=== PATIENT | female | born 2000 | race Caucasian/White ===

== ENCOUNTER 2025-07-10 08:18 | Outpatient (AMB) | payer BC, SELFPAY ==
--- OUTSIDE RECORDS SUMMARY | 2024-12-28 04:00 | XMS_ITS ---
Author Organization [facility] [address] [address] Address [address] [address] Care Team Providers Care Meat Stuffer Name Role Phone DIMAS RODRIGUEZ Unavailable [phone] Encounters Encounter Location Date Provider Diagnosis [facility] [address] [address] 12/28/2024 DIMAS RODRIGUEZ Plan Of Treatment Next Appt Details Provider Name:DIMAS RODRIGUEZ, 09/02/2025 08:30:00 AM, [address], [place], [address], Progress Notes * YANNA ESTRELLA KDOB: [birth year] (24 yo F)Acc No.[id number]:12/28/2024 CPE Patient: YANNA ESTRELLA Provider: Darryl RODRIGUEZ PA-C :2000 A ge:24 Y S ex:Female Date:12/28/2024 Address:[address] [place] [address] [place], [id number] Care Plan Details* * Electronic signature of ANGELINE RODRIGUEZ PA-C on 07/10/2025 at 08:26 AM EST Sign off status: Pending * Provider: Darryl RODRIGUEZ PA-C Date: 0 12/28/2024 Generated for Igor arechiga/Karthik/Francis on: 1 09/10/2024 08:26 AM EST
--- OUTSIDE RECORDS SUMMARY | 2025-05-01 03:00 | XMS_ITS ---
Author Organization [facility] [address] Address [address] [place] [address] Care Team Providers Care Director Of Pulmonary Unit Name Role Phone DIMAS RODRIGUEZ Unavailable [phone] Encounters Encounter Location Date Provider Diagnosis [facility] [address] [place] [address] 05/01/2025 DIMAS RODRIGUEZ Plan Of Treatment Next Appt Details Provider Name:DIMAS RODRIGUEZ, 09/02/2025 08:30:00 AM, [address], [place], [address], Progress Notes * YANNA ESTRELLA KDOB: [birth year] (24 yo F)Acc No.[id number]:05/01/2025 Progress Notes Patient: YANNA ESTRELLA Provider: Darryl RODRIGUEZ PA-C :2000 A ge:24 Y S ex:Female Date:05/01/2025 Address:[address] [place] [id number] Care Plan Details* * Electronic signature of ANGELINE RODRIGUEZ PA-C on 07/10/2025 at 08:26 AM EST Sign off status: Pending * Provider: Darryl RODRIGUEZ PA-C Date: Generated for Igor arechiga/Karthik/eTransmanna on: 1 09/10/2024 08:26 AM EST
--- OUTSIDE RECORDS SUMMARY | 2025-07-10 08:27 | XMS_ITS | Clinical Summary ---
Author Organization [facility] Address [address] [place] [address] Phone Care Team Providers Care Social Media Strategist Name Role Phone Physician, No Pcp Primary Care Provider Unavaila ble Encounters Date Type Department Care Team Description 05/15/2025 8:09 AM EDT - 05/15/2025 11:59 PM EDT Hospital Encounter [facility] Ultrasound [address] [place] [address] Abdominal mass, unspecified abdominal location Discharge Disposition: Home or Self Care from Last 3 Months Social History Tobacco Use Types Packs/Day Years Used Date Smoking Tobacco: Never Assessed Comments Unknown Sex and Gender Information Value Date Recorded Sex Assigned at Not on file Legal Sex Female 11:39 AM EDT Gender Identity Not on file Sexual Orientation Not on file Last Filed Vital Signs Vital Sign Reading Time Taken Comments Blood Pressure 100/70 03/05/2024 8:11 AM EDT Pulse - - Temperature - - Respiratory Rate - - Oxygen Saturation - - Inhaled Oxygen Concentration - - Weight 76.7 kg (169 lb) 03/05/2024 8:11 AM EDT Height 177.8 cm (5' 10 ) 03/05/2024 8:11 AM EDT Body Mass Index 24.25 03/05/2024 8:11 AM EDT Plan of Treatment Health Maintenance Due Date Last Done Comments Meningococcal B Vaccine (2 of 2 - Bexsero SCDM 2-dose series) 12/15/2018 06/17/2018 Cervical Cancer Screening: Pap Smear 12/25/2019 HIV Screening 05/02/2024 Hepatitis C Screening 05/02/2024 Social Influencers of Health Screening 05/02/2024 Depression Screening 07/25/2024 COVID-19 Vaccine ( season) 2025 04/25/2024, 07/01/2023, 01/08/2023, Additional history exists DTaP,Tdap,and Td Vaccines (8 - Td or Tdap) 01/08/2033 01/08/2023, 01/20/2010, 12/20/2003, Additional history exists RSV Immunization Adult Patients (1 - 1-dose 75+ series) 2073 HIB Vaccines Completed 04/15/2000, 06/24, 05/05/1999, Additional history exists Pneumococcal Vaccine: Pediatrics (0 to 5 Years) and At-Risk Patients (6 to 49 Years) Aged Out 09/02/2000, 07/22/2000 No longer eligibl e based on patient's age to complete this topic IPV Vaccines Completed 12/20/2003, 06/25, 05/05/1999, Additional history exists MMR Vaccines Completed 12/20/2003, 01/20/2000 Varicella Vaccines Completed 01/20/2010, 01/20/2000 HPV Vaccines Completed 03/11/2014, 07/26, 06/20/2013 Hepatitis A Vaccines Completed 03/11/2014, 03/01/20 13 Meningococcal ACWY Vaccine Completed 03/19/2015, Hepatitis B Vaccines Completed 12/20/2018, 07/06/1999, 01/22/1999, Additional history exists Influenza Vaccine Completed 05/07/2025, , 04/15/2023, Additional history exists RSV Immunization Patients Under 20 months Aged Out No longer eligible based on patient's age to complete this topic Procedures Procedure Name Priority Date/Time Associated Diagnosis Comments US ABDOMEN LIMITED Routine 05/15/2025 8: 25 AM EDT Abdominal mass, unspecified abdominal location from Last 3 Months Results * US Abdomen Limited (05/15/2025 8:25 AM EDT) Anatomical Region Laterality Modality Body Ultrasound 05/22/2025 4:52 PM EDT Impressions 05/22/2025 4:53 PM EDT Impression: No sonographic abnormality identified to account for the palpable mass. Further management should be based on clinical findings. Telerad MARY GRACE ([id number]) -------- FINAL REPORT -------- Dictated By: Jeni Sharp Dictated Date: 05/22/2025 16:52 ET Assigned Physician: Jeni Sharp Reviewed and Electronically Signed By: Jeni Sharp Signed Date: 05/22/2025 16:53 ET Workstation ID: [id number] Transcribed By: Self Edit Transcribed Date: 05/22/2025 16:52 ET Narrative 05/22/2025 4:53 PM EDT History: 24-year-old female with palpable mass right lower quadrant/right inguinal region for a few months. Findings: High resolution real-time imaging of the right lower quadrant/right inguinal region was performed, targeted to the area of clinical concern as directed by the patient. The skin and subcutaneous soft tissues are normal. No abnormal mass or fluid collection is seen. No lymphadenopathy is identified. Procedure Note Jeni Sharp MD - 05/22/2025 History: 24-year-old female with palpable mass right lower quadrant/rightinguinal region for a few months. Findings: High resolution real-time imaging of the right lower quadrant/rightinguinal region was performed, targeted to the area of clinical concern asdirected by the patient. The skin and subcutaneous soft tissues are normal. No abnormal mass orfluid collection is seen. No lymphadenopathy is identified. IMPRESSION: Impression: No sonographic abnormality identified to account for the palpable mass.Further management should be based on clinical findings. Telerad MARY GRACE ([id number]) -------- FINAL REPORT -------- Dictated By: Jeni Sharp Dictated Date: 05/22/2025 16:52 ET Assigned Physician: Jeni Sharp Reviewed and Electronically Signed By: Jeni Sharp Signed Date: 05/22/2025 16:53 ET Workstation ID: [id number] Transcribed By: Self Edit Transcribed Date: 05/22/2025 16:52 ET us Florin BRODY IMG US PROCEDURES Final Re sult from Last 3 Months Insurance [facility] ([facility]) Care Teams Social Media Strategist Relationship Specialty Start Date End Date Physician, No Pcp PCP - General 05/09/25
--- OUTSIDE RECORDS SUMMARY | 2025-07-10 08:27 | XMS_ITS | Patient Health Record ---
[facility] Address [address] [place] [address] Care Team Providers Care Manager Of Housekeeping Name Role Phone DIMAS RODRIGUEZ Unavailable [phone] Allergies No Known Allergies Results Component Value Reference Range Flag Notes Hemoglobin [id number] Reviewed date:01/22/2025 08:09:57 AM Interpretation: Performing Lab:[facility], [address] [facility], Phone - [phone], Director - Sena Notes/Report: Clinical Information:[id number] Hemoglobin A1c 4.9 4.8-5.6 % . Prediabetes: 5.7 - 6.4 Diabetes: >6.4 Glycemic control for adults with diabetes: <7.0 Urinalysis, Complete-[id number] Reviewed date:01/22/2025 08:09:57 AM Interpretation: Performing Lab:[facility], [address] [facility], [place], Phone - [phone], Director - Sena Notes/Report: Clinical Information:[id number] Clinical Information:[id number] Specific [place] 1.017 1.005-1.030 pH 6.0 5.0-7.5 Urine-Color Yellow Yellow Appearance Clear Clear WBC Esterase 3+ Negative A Protein Negative Negative/Trace Glucose Negative Negative Ketones Negative Negative Occult Blood Negative Negative Bilirubin Negative Negative Urobilinogen,Semi-Qn 0.2 0.2-1.0 mg/dL Nitrite, Urine Negative Negative Microscopic Examination See below: Microscopic was indicated and was performed. WBC 0-5 0 - 5 /hpf RBC None seen 0 - 2 /hpf Epithelial Cells (non renal) >10 0 - 10 /hpf A Casts None seen None seen /lpf Bacteria Few None seen/Few [id number] Reviewed date:01/22/2025 08:09:57 AM Interpretation: Performing Lab:[facility] [place], [address] [place] [address], Phone - [phone], Director - Sena Notes/Report: Clinical Information:[id number] TSH 2.020 0.450-4.500 uIU/mL CBC With Differential/Platel et-[id number] Reviewed date:01/22/2025 08:09:50 AM Interpretation: Performing Lab:[facility] [place], [address] [place] [address], Phone - [phone], Director - Sena Notes/Report: Clinical Information:[id number] WBC 7.7 3.4-10.8 x10E3/uL RBC 4.04 3.77-5.28 x10E6/uL Hemoglobin 12.2 11.1-15.9 g/dL Hematocrit 39.2 34.0-46.6 % MCV 97 79-97 fL MCH 30.2 26.6-33.0 pg MCHC 31.1 31.5-35.7 g/dL L RDW 13.8 11.7-15.4 % Platelets 337 150-450 x10E3/uL Neutrophils 53 Not Estab. % Lymphs 37 Not Estab. % Monocytes 7 Not Estab. % Eos 2 Not Estab. % Basos 1 Not Estab. % Neutrophils (Absolute) 4.1 1.4-7.0 x10E3/uL Lymphs (Absolute) 2.8 0.7-3.1 x10E3/uL Monocytes(Absolute) 0.5 0.1-0.9 x10E3/uL Eos (Absolute) 0.2 0.0-0.4 x10E3/uL Baso (Absolute) 0.1 0.0-0.2 x10E3/uL Immature Granulocytes 0 Not Estab. % Immature Grans (Abs) 0.0 0.0-0.1 x10E3/uL Vitamin D, [id number] Reviewed date:01/22/2025 08:09:57 AM Interpretation: Performing Lab:[facility] [place], [address] [place] [address], Phone - [phone], Director - Sena Notes/Report: Clinical Information:[id number] Vitamin D, 25-Hydroxy 37.5 30.0-100.0 ng/mL Vitamin D deficiency has been defined by the [employer] and an Endocrine Society practice guideline as a level of serum 25-OH vitamin D less than 20 ng/mL (1,2). The Endocrine Society went on to further define vitamin D insufficiency as a level between 21 and 29 ng/mL (2). 1. IOM ([employer]). 2010. Dietary reference intakes for calcium and D. [place]: The National Academies Press. 2. Khalida MF, Pamela ZARAGOZA, Catrachito JACOB, et al. Evaluation, treatment, and prevention of vitamin D deficiency: an Endocrine Society clinical practice guideline. JCEM. 2010; 96(7):1911-30. Lipid Panel-[id number] Reviewed date:01/22/2025 08:09:57 AM Interpretation: Performing Lab:[facility], [address] [facility], Phone - [phone], Director - Sena Notes/Report: Clinical Information:[id number] Cholesterol, Total 173 100-199 mg/dL Triglycerides 110 0-149 mg/dL HDL Cholesterol 68 >39 mg/dL VLDL Cholesterol Jonas 19 5-40 mg/dL LDL Chol Calc ([facility]) 86 0-99 mg/dL Comp. Metabolic Panel ([id number] Reviewed date:01/22/2025 08:09:57 AM Interpretation: Performing Lab:[facility] [place], [address] [facility], Phone - [phone], Director - Sena Notes/Report: Clinical Information:[id number] Glucose 91 70-99 mg/dL BUN 12 6-20 mg/dL Creatinine 0.78 0.57-1.00 mg/dL eGFR 107 >59 mL/min/1.73 BUN/Creatinine Ratio 15 9-23 Sodium 138 134-144 mmol/L Potassium 4.1 3.5-5.2 mmol/L Chloride 103 96-106 mmol/L Carbon Dioxide, Total 21 20-29 mmol/L Calcium 9.2 8.7-10.2 mg/dL Protein, Total 7.2 6.0-8.5 g/dL Albumin 4.3 4.0-5.0 g/dL Globulin, Total 2.9 1.5-4.5 g/dL Bilirubin, Total 0.3 0.0-1.2 mg/dL Alkaline Phosphatase 36 44-121 IU/L L AST (SGOT) 22 0-40 IU/L ALT (SGPT) 12 0-32 IU/L MR BRAIN WO CONTRAST Reviewed date:02/21/2025 10:15:08 AM Interpretation: Performing Lab: Notes/Report: Note See Note [facility], a member of [facility] Patient Name: EUGENIA ESTRLELA Date of : 2000 Reason for Exam: TREMOR, HEADACHE Exam Date: 02/20/2025 [id number] EST Report Status: Final Ordering Provider: DIMAS RODRIGUEZ PCP: PROCEDURE: Brain MRI INDICATION: Headache , tremor TECHNIQUE: Multiplan ar, multisequence MRI of the brain Without contrast. COMPARISON: No prior s available. FINDINGS: No acute infarct, ma ss effect, or intracranial hemorrhage. Brain parenchyma is normal in signal. No abnormal intracranial susceptibility artifact. Sella and foramen magnum are normal. Ventricles, sulci, a nd cisterns are normal in size and configuration. No hydrocephalus. Major intracranial arterial flow voids are normal. Sinuses and mastoid air cells are clear. Orbits and extra cranial soft tissues are normal. Calvarium is normal IMPRESSION: Normal brain MRI without contrast -------- FINAL REPOR T -------- Dictated By: DIANE RAHMAN Dictated Date: 02/20/2025 17:54 ET Assigned Physician: DIANE RAHMAN Reviewed and Electronically Signed By: DIANE RAHMAN Signed Date: 025 17:56 ET Workstation ID: [id number] Transcribed By: Self Edit Transcribed Date: 02/20/2025 17:54 ET US ABDOMEN LIMITED Reviewed date:05/23/2025 08:14:05 AM Interpretation: Performing Lab: Notes/Report: Note See Note [facility], a member of [facility] Patient Name: EUGENIA ESTRELLA Date of : 2000 Reason for Exam: abdominal mass unspecified abdominal location Exam Date: 05/15/2025 [id number] EST Report Status: Final Ordering Provider: DIMAS RODRIGUEZ PCP: History: 24-year-old female with palpable mass right [...] should be based on clinical findings. [place] ([id number]) -------- FINAL REPOR T -------- Dictated By: Jeni Dennis i Dictated Date: 05/22/2025 16:52 ET Assigned Physician: Jeni Sharp Reviewed and Electronically Signed By: Jeni Sharp Signed Date: 16:53 ET Workstation ID: [id number] Transcribed By: Self Edit Transcribed Date: 05/22/2025 16:52 ET Reason For Referral Reason Evaluate & Treat S leep Study @ home hx following sleep medicine w/phone Diagnosis 1 Daytime sleepiness ( R40.0) [facility] Referring Provider First Name DIMAS Referring Provider Last Name JENNIFER Referring Provider Speciality Internal edicine Referred Provider Specialty Pulmonology General Notes Shelley Pena 0 01/30/2025 03:59:27 PM > Referral to [facility] and faxed, p. [phone], f. [phone] Clinical Notes Elijah Stone 10:33:29 AM > Refaxed twice to [phone] Referral Priority Routine Reason Evaluate & Treat S leep Study @ Home hx following sleep medicine w/phone Diagnosis 1 Daytime sleepiness ( R40.0) [facility] Referring Provider First Name DIMAS Referring Provider Last Name JENNIFER Referring Provider Speciality Internal edicine Referred Provider Specialty Sleep Medici ne General Notes Shelley Pena 0 03/06/2025 08:07:29 AM > Referral to Sleep Medicine [facility] and faxed, p. [phone], f. [phone] Clinical Notes Elijah Stone 12/2024 01:41:53 PM > spoke with michael Willett done with sleep study in Mar. Referral Priority Routine Medications Medication SIG (Take, Route, Frequency, Duration) Notes Start Date End Date Status SUMAtriptan Succinate 25 MG Tablet 25 mg, can repeat dose x 1, after 2 hours Orally twice a day; Duration: 15 days 01/29/2025 Active Liset Active Propranolol HCl ER 80 MG Capsule Extended Release 24 Hour Oral; Duration: 90 Days Acti ve Immunizations Vaccine Route Administration Date Status Comme nts influenza IM Intramuscular 06/20/2019 Administered Social History Tobacco Use: Social History Observation Description Date Details (start date - stop date) Never Smoker NA - NA Social History Tobacco Use: Social Info Question Answer Notes Tobacco Use/Smoking Are you a nonsmoker Additional Details Category Social Info Options Details Drugs/Alcohol: Do you smoke marijuana? Ad mits Do you drink alcohol? 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 [facility] ETOH Use: < 1 drink weekly Tob Use: declines Drug Use: declines Caffeine Use: Coffee daily, rare energy drink Smoke detectors in home: Yes Seatbelt use: Yes [facility] school starting in March See HPI Nurse at [facility] ETOH Use: < 1 drink weekly Tob Use: declines Drug Use: declines Caffeine Use: Coffee daily, rare energy drink Smoke detectors in home: Yes Seatbelt use: Yes Problems Problem Type SNOMED Code ICD Code Onset Dates Problem Status W/U Status Risk Notes Problem Vitamin D deficiency (58891666) Vitamin D deficiency, unspecified (E55.9) Active confirmed Problem Diabetes mellitus screening (966855252) Encounter for screening for diabetes mellitus (Z13.1) Active confirmed Problem Endocrine/[place] lic screening (870132905) Encounter for screening for other suspected endocrine disorder (Z13.29) Active confirmed Problem Annual health maintenance examination (92038421) Annual physical exam (Z00.00) Active confirmed Problem Excessive daytime sleepiness - normal night sleep (959380375) Daytime sleepiness (R40.0) Active confirmed Problem Tremor of both hands (R25.1) Active confirmed Problem Lipid screening (177674915) Lipid screening (Z13.220) Active confirmed Problem Migraine variant with headache (disorder) (516400872) Migraine headache (G43.909) Active confirmed Problem Acne scarring (L73.0) Active confirmed Problem Excessive daytime sleepiness (4106976455) Excessive daytime sleepiness (G47.19) Active confirmed Problem Refractory migraine with aura (136121475) Intractable migraine with aura with status migrainosus (G43.111) Active confirmed Vital Signs Heart Rate 68 /min 05/02/2025 Oximetry 99 % 05/02/2025 Blood pressure diastolic 76 mm Hg 05/02/2025 Height 69 in 05/02/2025 Blood pressure systolic 122 mm Hg 05/02/2025 Weight 181.3 lbs 05/02/2025 BMI 26.77 kg/m2 05/02/2025 Encounters Encounter Location Date Provider Diagnosis [facility] [address] [place] [address] 01/29/2025 DIMAS RODRIGUEZ Tremor R25.1 ; Welln ess examination Z00.00 ; Daytime sleepiness R40.0 ; Pre-syncope R55 ; Intractable migraine with aura with status migrainosus G43.111 and Encounter for examination of blood pressure without abnormal findings Z01.[address] [facility] [address] [place] [address] 05/02/2025 DIMAS RODRIGUEZ Tremor R25.1 ; Dayti me sleepiness R40.0 ; Pre-syncope R55 ; Intractable migraine with aura with status migrainosus G43.111 and Encounter for examination of blood pressure without abnormal findings Z01.30 [facility] [address] [place] [address] 05/02/2025 DIMAS RODRIGUEZ Abdominal mass, unspecified abdominal location R19.00 Assessments Encounter Date Diagnosis (ICD Code) Assessment Notes Treatment Notes Treatment Clinical Notes Section Notes 01/29/2025 Tremor (ICD-10 - R25.1) Eugenia is a 24-year-old female who presents the office for a complete physical examination # PHQ-9 completed January 29, 2025 with a total score of 3, no concern regarding mental health at this time. # Up-to-date on flu, and tetanus, declines COVID vaccination # Up-to-date on Pap smear November 2024, Dr. Lauren Stern # Labs reviewed, overall without concern # History of tremor, following with [place] [facility], on propranolol 80 mg. Occasional lightheadedness which could be associated with side effect of bradycardia, heart rate 54 today. States that it is worse when she does not eat, discussed the importance of nutrition. # Daytime sleepiness: Referred to sleep medicine, patient did not get at home sleep study, will recontact sleep medicine as they already ordered at home sleep study. # Taking control, Discussed risk factors associated with taking control with migraines. # Migraines: About 5 times per month. Mother has a history of them as well, treated with sumatriptan which patient tried. She is interested in a prescription for this which was sent. Discussed proper use, and side effects. Patient states that the migraine always is in her right congregational, and behind her right eye. With her history of migraines, and tremors, she is interested in MRI for which we will order without contrast. Also encouraged to follow with neurology. She is not interested in any abortive treatment at this time, just preventative for which we will start with sumatriptan. 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 No further workup indicated at this time but can repeat echoes in the future for further monitoring. # Bilateral hand tremors, will order EMG, Negative. Patient still experiencing tremors, not better with alcohol. Follow-up with [place] [facility], taking propranolol 80 mg # Patient concerns in regards to a lump in her right groin. Based on physical exam most likely a benign lymph node. No further workup needed at this time, but did discuss criteria for further evaluation with an ultrasound. Less likely hernia at this time. Follow-up in 3 months, follow-up with sleep medicine, neurology, and obtain MRI of the brain in the meantime. Patient seen and examined. Comprehensive discussion was done on the following. 1. Nutrition: It is important to follow a healthy diet based on lots of vegetables and legumes and good fat. Avoid processed food and processed carbohydrates. Prepare your own meals. Read labels and avoid high fructose corn syrup, processed chemicals added to increase shelf life and preprepared meals. Avoid fast foods. Eat slowly and plan meals for a week. Try to count calories and be mindful off daily calorie intake. Get into the habit of keeping an eye on your weight by using an appropriate scale. Learn to log exercise and discussed fitness Apps like Shoptimise which can help keep log off calories taken versus calories burned. Local food should be preferred. Discussed Dirty Dozen Versus Clean Fifteen. Discussed healthy supplements like fish oil, Tumeric, Curcumin, Melatonin, Resveratrol, Probiotics, Vitamin-D, Alpha-Lipoic acid, Vitamin-D and coconut oil. 2. It is important to exercise regularly. Is a good habit to walk at least 30 minutes a day. Gentle weightlifting with standard precautions to protect the back. Finding activity like cycling or hiking and get into the habit of engaging in it. Stretching before and after the exercises important. It is also important to contact me if there are any problems like shortness of breath, chest pain, back pain and joint or muscle pain associated with the exercise. 3. Discussed age appropriate screening guidelines. Colonoscopy needs to start at age 50 with stool for occult blood as appropriate. There is a new test that can test for genetic abnormalities in the stool sample, Cologuard. This would not replace a colonoscopy but could be used as a screening tool for patients who do not want a colonoscopy. We discussed the importance of early detection of colon cancer. 4. Discussed current guidelines with respect to breast examination, mammogram and pap smear for early detection of breast and cervical cancer. Patient advised to follow up with these appointments. 5. Discussed safe driving and no use of smart phone while driving 6. Age-appropriate immunizations were discussed. A tetanus booster is needed every 10 years. Flu vaccine is recommended every year just before the start of the flu season. Shingles vaccine is recommended after age 50 but not all insurances cover it. Pneumonia vaccine is given after age 65 unless there are certain comorbidities for which it is started earlier. 7. Diagnostic labs were discussed. These could include/not limited to CBC CMP and lipids with fasting blood glucose and insulin levels. Vitamin D and hemoglobin A1c testing might be appropriate. All quetsions answered to patients satisfaction. Patient verbalized understanding of diagnosis and treatments explained. To call sooner prior to next visit it any questions/concerns arise. Case discussed with collaborating physician Tala Mack who reviewed the assessment and plan. Chart, medications, labs, vital signs reviewed. Dictation was accomplished with the use of [employer] voice recognition software, prone to medical misidentifications and grammatical errors. This is unintentional and the practitioner does try to identify and correct these, but some could still be present. Please do not hesitate to contact practitioner for clarification. 01/29/2025 Wellness examination (ICD-10 - Z00.00) Eugenia is a 24-year-old female who presents the office for a complete physical examination # PHQ-9 completed January 29, 2025 with a total score of 3, no concern regarding mental health at this time. # Up-to-date on flu, and tetanus, declines COVID vaccination # Up-to-date on Pap smear November 2024, Dr. Lauren Stern # Labs reviewed, overall without concern # History of tremor, following with [place] [facility], on propranolol 80 mg. Occasional lightheadedness which could be associated with side effect of bradycardia, heart rate 54 today. States that it is worse when she does not eat, discussed the importance of nutrition. # Daytime sleepiness: Referred to sleep medicine, patient did not get at home sleep study, will recontact sleep medicine as they already ordered at home sleep study. # Taking control, Discussed risk factors associated with taking control with migraines. # Migraines: About 5 times per month. Mother has a history of them as well, treated with sumatriptan which patient tried. She is interested in a prescription for this which was sent. Discussed proper use, and side effects. Patient states that the migraine always is in her right congregational, and behind her right eye. With her history of migraines, and tremors, she is interested in MRI for which we will order without contrast. Also encouraged to follow with neurology. She is not interested in any abortive treatment at this time, just preventative for which we will start with sumatriptan. 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 No further workup indicated at this time but can repeat echoes in the future for further monitoring. # Bilateral hand tremors, will order EMG, Negative. Patient still experiencing tremors, not better with alcohol. Follow-up with [place] [facility], taking propranolol 80 mg # Patient concerns in regards to a lump in her right groin. Based on physical exam most likely a benign lymph node. No further workup needed at this time, but did discuss criteria for further evaluation with an ultrasound. Less likely hernia at this time. Follow-up in 3 months, follow-up with sleep medicine, neurology, and obtain MRI of the brain in the meantime. Patient seen and examined. Comprehensive discussion was done on the following. 1. Nutrition: It is important to follow a healthy diet based on lots of vegetables and legumes and good fat. Avoid processed food and processed carbohydrates. Prepare your own meals. Read labels and avoid high fructose corn syrup, processed chemicals added to increase shelf life and preprepared meals. Avoid fast foods. Eat slowly and plan meals for a week. Try to count calories and be mindful off daily calorie intake. Get into the habit of keeping an eye on your weight by using an appropriate scale. Learn to log exercise and discussed fitness Apps like [employer] which can help keep log off calories taken versus calories burned. Local food should be preferred. Discussed Dirty Dozen Versus Clean Fifteen. Discussed healthy supplements like fish oil, Tumeric, Curcumin, Melatonin, Resveratrol, Probiotics, Vitamin-D, Alpha-Lipoic acid, Vitamin-D and coconut oil. 2. It is important to exercise regularly. Is a good habit to walk at least 30 minutes a day. Gentle weightlifting with standard precautions to protect the back. Finding activity like cycling or hiking and get into the habit of engaging in it. Stretching before and after the exercises important. It is also important to contact me if there are any problems like shortness of breath, chest pain, back pain and joint or muscle pain associated with the exercise. 3. Discussed age appropriate screening guidelines. Colonoscopy needs to start at age 50 with stool for occult blood as appropriate. There is a new test that can test for genetic abnormalities in the stool sample, Cologuard. This would not replace a colonoscopy but could be used as a screening tool for patients who do not want a colonoscopy. We discussed the importance of early detection of colon cancer. 4. Discussed current guidelines with respect to breast examination, mammogram and pap smear for early detection of breast and cervical cancer. Patient advised to follow up with these appointments. 5. Discussed safe driving and no use of smart phone while driving 6. Age-appropriate immunizations were discussed. A tetanus booster is needed every 10 years. Flu vaccine is recommended every year just before the start of the flu season. Shingles vaccine is recommended after age 50 but not all insurances cover it. Pneumonia vaccine is given after age 65 unless there are certain comorbidities for which it is started earlier. 7. Diagnostic labs were discussed. These could include/not limited to CBC CMP and lipids with fasting blood glucose and insulin levels. Vitamin D and hemoglobin A1c testing might be appropriate. All quetsions answered to patients satisfaction. Patient verbalized understanding of diagnosis and treatments explained. To call sooner prior to next visit it any questions/concerns arise. Case discussed with collaborating physician Tala Mack who reviewed the assessment and plan. Chart, medications, labs, vital signs reviewed. Dictation was accomplished with the use of [employer] voice recognition software, prone to medical misidentifications and grammatical errors. This is unintentional and the practitioner does try to identify and correct these, but some could still be present. Please do not hesitate to contact practitioner for clarification. 05/02/2025 Tremor (ICD-10 - R25.1) Eugenia is a 24-year-old female who presents the office for a Follow-up visit. # PHQ-9 completed January 29, 2025 with a total score of 3, no concern regarding mental health at this time. # Up-to-date on flu, and tetanus, declines COVID vaccination # Up-to-date on Pap smear November 2024, Dr. Lauren Stern # Labs reviewed, overall without concern # History of tremor, following with [place] [facility], on propranolol 80 mg. Occasional lightheadedness which could be associated with side effect of bradycardia, heart rate Stable today. Discussed the importance of nutrition and hydration. She would like to continue with the medication. # Daytime sleepiness: Referred to sleep medicine,Had at home sleep study, overall did well 1 apneic episode. Doing an in-hospital sleep study. 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 This could also help with her daytime sleepiness. # Migraines: About 5 times per month. Mother has a history of them as well, treated with sumatriptan which patient tried. She is interested in a prescription for this which was sent. Discussed proper use, and side effects. Patient states that the migraine always is in her right congregational, and behind her right eye. With her history of migraines, and tremors, she is interested in MRI for which we will order without contrast. She is following with neurology, MRI was within normal limits and reassuring. does not feel she needs preventative treatment at this time, just abortive. Taking sumatriptan. 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 No further workup indicated at this time but can repeat echoes in the future for further monitoring. # Bilateral hand tremors, will order EMG, Negative. Patient still experiencing tremors, not better with alcohol. Follow-up with [place] [facility], taking propranolol 80 mg # Patient concerns in regards to a lump in her right groin.Physical exam positive for a small, mobile, nontender lump in the right lower quadrant. Will order ultrasound. # Fatigue: Discussed multivitamin, B complex Follow-up in August, following with sleep medicine, neurology, ultrasound of the right lower quadrant All quetsions answered to patients satisfaction. Patient verbalized understanding of diagnosis and treatments explained. To call sooner prior to next visit it any questions/concerns arise. Case discussed with collaborating physician Tala Mack who reviewed the assessment and plan. Chart, medications, labs, vital signs reviewed. Dictation was accomplished with the use of [employer] voice recognition software, prone to medical misidentifications and grammatical errors. This is unintentional and the practitioner does try to identify and correct these, but some could still be present. Please do not hesitate to contact practitioner for clarification. 05/02/2025 Daytime sleepiness (ICD-10 - R40.0) Eugenia is a 24-year-old female who presents the office for a Follow-up visit. # PHQ-9 completed January 29, 2025 with a total score of 3, no concern regarding mental health at this time. # Up-to-date on flu, and tetanus, declines COVID vaccination # Up-to-date on Pap smear November 2024, Dr. Lauren Stern # Labs reviewed, overall without concern # History of tremor, following with [facility], on propranolol 80 mg. Occasional lightheadedness which could be associated with side effect of bradycardia, heart rate Stable today. Discussed the importance of nutrition and hydration. She would like to continue with the medication. # Daytime sleepiness: Referred to sleep medicine,Had at home sleep study, overall did well 1 apneic episode. Doing an in-hospital sleep study. 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 This could also help with her daytime sleepiness. # Migraines: About 5 times per month. Mother has a history of them as well, treated with sumatriptan which patient tried. She is interested in a prescription for this which was sent. Discussed proper use, and side effects. Patient states that the migraine always is in her right congregational, and behind her right eye. With her history of migraines, and tremors, she is interested in MRI for which we will order without contrast. She is following with neurology, MRI was within normal limits and reassuring. does not feel she needs preventative treatment at this time, just abortive. Taking sumatriptan. 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 No further workup indicated at this time but can repeat echoes in the future for further monitoring. # Bilateral hand tremors, will order EMG, Negative. Patient still experiencing tremors, not better with alcohol. Follow-up with [facility], taking propranolol 80 mg # Patient concerns in regards to a lump in her right groin.Physical exam positive for a small, mobile, nontender lump in the right lower quadrant. Will order ultrasound. # Fatigue: Discussed multivitamin, B complex Follow-up in August, following with sleep medicine, neurology, ultrasound of the right lower quadrant All quetsions answered to patients satisfaction. Patient verbalized understanding of diagnosis and treatments explained. To call sooner prior to next visit it any questions/concerns arise. Case discussed with collaborating physician Tala Mack who reviewed the assessment and plan. Chart, medications, labs, vital signs reviewed. Dictation was accomplished with the use of [employer] voice recognition software, prone to medical misidentifications and grammatical errors. This is unintentional and the practitioner does try to identify and correct these, but some could still be present. Please do not hesitate to contact practitioner for clarification. 05/02/2025 Abdominal mass, unspecified abdominal location (ICD-10 - R19.00) 05/02/2025 Pre-syncope (ICD-10 - R55) Eugenia is a 24-year-old female who presents the office for a Follow-up visit. # PHQ-9 completed January 29, 2025 with a total score of 3, no concern regarding mental health at this time. # Up-to-date on flu, and tetanus, declines COVID vaccination # Up-to-date on Pap smear November 2024, Dr. Lauren Stern # Labs reviewed, overall without concern # History of tremor, following with [facility], on propranolol 80 mg. Occasional lightheadedness which could be associated with side effect of bradycardia, heart rate Stable today. Discussed the importance of nutrition and hydration. She would like to continue with the medication. # Daytime sleepiness: Referred to sleep medicine,Had at home sleep study, overall did well 1 apneic episode. Doing an in-hospital sleep study. 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 This could also help with her daytime sleepiness. # Migraines: About 5 times per month. Mother has a history of them as well, treated with sumatriptan which patient tried. She is interested in a prescription for this which was sent. Discussed proper use, and side effects. Patient states that the migraine always is in her right congregational, and behind her right eye. With her history of migraines, and tremors, she is interested in MRI for which we will order without contrast. She is following with neurology, MRI was within normal limits and reassuring. does not feel she needs preventative treatment at this time, just abortive. Taking sumatriptan. 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 No further workup indicated at this time but can repeat echoes in the future for further monitoring. # Bilateral hand tremors, will order EMG, Negative. Patient still experiencing tremors, not better with alcohol. Follow-up with [facility], taking propranolol 80 mg # Patient concerns in regards to a lump in her right groin.Physical exam positive for a small, mobile, nontender lump in the right lower quadrant. Will order ultrasound. # Fatigue: Discussed multivitamin, B complex Follow-up in August, following with sleep medicine, neurology, ultrasound of the right lower quadrant All quetsions answered to patients satisfaction. Patient verbalized understanding of diagnosis and treatments explained. To call sooner prior to next visit it any questions/concerns arise. Case discussed with collaborating physician Tala Mack who reviewed the assessment and plan. Chart, medications, labs, vital signs reviewed. Dictation was accomplished with the use of [employer] voice recognition software, prone to medical misidentifications and grammatical errors. This is unintentional and the practitioner does try to identify and correct these, but some could still be present. Please do not hesitate to contact practitioner for clarification. 01/29/2025 Daytime sleepiness (ICD-10 - R40.0) Eugenia is a 24-year-old female who presents the office for a complete physical examination # PHQ-9 completed January 29, 2025 with a total score of 3, no concern regarding mental health at this time. # Up-to-date on flu, and tetanus, declines COVID vaccination # Up-to-date on Pap smear November 2024, Dr. Lauren Stern # Labs reviewed, overall without concern # History of tremor, following with [facility], on propranolol 80 mg. Occasional lightheadedness which could be associated with side effect of bradycardia, heart rate 54 today. States that it is worse when she does not eat, discussed the importance of nutrition. # Daytime sleepiness: Referred to sleep medicine, patient did not get at home sleep study, will recontact sleep medicine as they already ordered at home sleep study. # Taking control, Discussed risk factors associated with taking control with migraines. # Migraines: About 5 times per month. Mother has a history of them as well, treated with sumatriptan which patient tried. She is interested in a prescription for this which was sent. Discussed proper use, and side effects. Patient states that the migraine always is in her right congregational, and behind her right eye. With her history of migraines, and tremors, she is interested in MRI for which we will order without contrast. Also encouraged to follow with neurology. She is not interested in any abortive treatment at this time, just preventative for which we will start with sumatriptan. 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 No further workup indicated at this time but can repeat echoes in the future for further monitoring. # Bilateral hand tremors, will order EMG, Negative. Patient still experiencing tremors, not better with alcohol. Follow-up with [facility] [facility], taking propranolol 80 mg # Patient concerns in regards to a lump in her right groin. Based on physical exam most likely a benign lymph node. No further workup needed at this time, but did discuss criteria for further evaluation with an ultrasound. Less likely hernia at this time. Follow-up in 3 months, follow-up with sleep medicine, neurology, and obtain MRI of the brain in the meantime. Patient seen and examined. Comprehensive discussion was done on the following. 1. Nutrition: It is important to follow a healthy diet based on lots of vegetables and legumes and good fat. Avoid processed food and processed carbohydrates. Prepare your own meals. Read labels and avoid high fructose corn syrup, processed chemicals added to increase shelf life and preprepared meals. Avoid fast foods. Eat slowly and plan meals for a week. Try to count calories and be mindful off daily calorie intake. Get into the habit of keeping an eye on your weight by using an appropriate scale. Learn to log exercise and discussed fitness Apps like [employer] which can help keep log off calories taken versus calories burned. Local food should be preferred. Discussed Dirty Dozen Versus Clean Fifteen. Discussed healthy supplements like fish oil, Tumeric, Curcumin, Melatonin, Resveratrol, Probiotics, Vitamin-D, Alpha-Lipoic acid, Vitamin-D and coconut oil. 2. It is important to exercise regularly. Is a good habit to walk at least 30 minutes a day. Gentle weightlifting with standard precautions to protect the back. Finding activity like cycling or hiking and get into the habit of engaging in it. Stretching before and after the exercises important. It is also important to contact me if there are any problems like shortness of breath, chest pain, back pain and joint or muscle pain associated with the exercise. 3. Discussed age appropriate screening guidelines. Colonoscopy needs to start at age 50 with stool for occult blood as appropriate. There is a new test that can test for genetic abnormalities in the stool sample, Cologuard. This would not replace a colonoscopy but could be used as a screening tool for patients who do not want a colonoscopy. We discussed the importance of early detection of colon cancer. 4. Discussed current guidelines with respect to breast examination, mammogram and pap smear for early detection of breast and cervical cancer. Patient advised to follow up with these appointments. 5. Discussed safe driving and no use of smart phone while driving 6. Age-appropriate immunizations were discussed. A tetanus booster is needed every 10 years. Flu vaccine is recommended every year just before the start of the flu season. Shingles vaccine is recommended after age 50 but not all insurances cover it. Pneumonia vaccine is given after age 65 unless there are certain comorbidities for which it is started earlier. 7. Diagnostic labs were discussed. These could include/not limited to CBC CMP and lipids with fasting blood glucose and insulin levels. Vitamin D and hemoglobin A1c testing might be appropriate. All quetsions answered to patients satisfaction. Patient verbalized understanding of diagnosis and treatments explained. To call sooner prior to next visit it any questions/concerns arise. Case discussed with collaborating physician Tala Mack who reviewed the assessment and plan. Chart, medications, labs, vital signs reviewed. Dictation was accomplished with the use of [employer] voice recognition software, prone to medical misidentifications and grammatical errors. This is unintentional and the practitioner does try to identify and correct these, but some could still be present. Please do not hesitate to contact practitioner for clarification. 01/29/2025 Pre-syncope (ICD-10 - R55) Eugenia is a 24-year-old female who presents the office for a complete physical examination # PHQ-9 completed January 29, 2025 with a total score of 3, no concern regarding mental health at this time. # Up-to-date on flu, and tetanus, declines COVID vaccination # Up-to-date on Pap smear November 2024, Dr. Lauren Stern # Labs reviewed, overall without concern # History of tremor, following with [facility], on propranolol 80 mg. Occasional lightheadedness which could be associated with side effect of bradycardia, heart rate 54 today. States that it is worse when she does not eat, discussed the importance of nutrition. # Daytime sleepiness: Referred to sleep medicine, patient did not get at home sleep study, will recontact sleep medicine as they already ordered at home sleep study. # Taking control, Discussed risk factors associated with taking control with migraines. # Migraines: About 5 times per month. Mother has a history of them as well, treated with sumatriptan which patient tried. She is interested in a prescription for this which was sent. Discussed proper use, and side effects. Patient states that the migraine always is in her right congregational, and behind her right eye. With her history of migraines, and tremors, she is interested in MRI for which we will order without contrast. Also encouraged to follow with neurology. She is not interested in any abortive treatment at this time, just preventative for which we will start with sumatriptan. 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 No further workup indicated at this time but can repeat echoes in the future for further monitoring. # Bilateral hand tremors, will order EMG, Negative. Patient still experiencing tremors, not better with alcohol. Follow-up with [facility] [facility], taking propranolol 80 mg # Patient concerns in regards to a lump in her right groin. Based on physical exam most likely a benign lymph node. No further workup needed at this time, but did discuss criteria for further evaluation with an ultrasound. Less likely hernia at this time. Follow-up in 3 months, follow-up with sleep medicine, neurology, and obtain MRI of the brain in the meantime. Patient seen and examined. Comprehensive discussion was done on the following. 1. Nutrition: It is important to follow a healthy diet based on lots of vegetables and legumes and good fat. Avoid processed food and processed carbohydrates. Prepare your own meals. Read labels and avoid high fructose corn syrup, processed chemicals added to increase shelf life and preprepared meals. Avoid fast foods. Eat slowly and plan meals for a week. Try to count calories and be mindful off daily calorie intake. Get into the habit of keeping an eye on your weight by using an appropriate scale. Learn to log exercise and discussed fitness Apps like [employer] which can help keep log off calories taken versus calories burned. Local food should be preferred. Discussed Dirty Dozen Versus Clean Fifteen. Discussed healthy supplements like fish oil, Tumeric, Curcumin, Melatonin, Resveratrol, Probiotics, Vitamin-D, Alpha-Lipoic acid, Vitamin-D and coconut oil. 2. It is important to exercise regularly. Is a good habit to walk at least 30 minutes a day. Gentle weightlifting with standard precautions to protect the back. Finding activity like cycling or hiking and get into the habit of engaging in it. Stretching before and after the exercises important. It is also important to contact me if there are any problems like shortness of breath, chest pain, back pain and joint or muscle pain associated with the exercise. 3. Discussed age appropriate screening guidelines. Colonoscopy needs to start at age 50 with stool for occult blood as appropriate. There is a new test that can test for genetic abnormalities in the stool sample, Cologuard. This would not replace a colonoscopy but could be used as a screening tool for patients who do not want a colonoscopy. We discussed the importance of early detection of colon cancer. 4. Discussed current guidelines with respect to breast examination, mammogram and pap smear for early detection of breast and cervical cancer. Patient advised to follow up with these appointments. 5. Discussed safe driving and no use of smart phone while driving 6. Age-appropriate immunizations were discussed. A tetanus booster is needed every 10 years. Flu vaccine is recommended every year just before the start of the flu season. Shingles vaccine is recommended after age 50 but not all insurances cover it. Pneumonia vaccine is given after age 65 unless there are certain comorbidities for which it is started earlier. 7. Diagnostic labs were discussed. These could include/not limited to CBC CMP and lipids with fasting blood glucose and insulin levels. Vitamin D and hemoglobin A1c testing might be appropriate. All quetsions answered to patients satisfaction. Patient verbalized understanding of diagnosis and treatments explained. To call sooner prior to next visit it any questions/concerns arise. Case discussed with collaborating physician Tala Mack who reviewed the assessment and plan. Chart, medications, labs, vital signs reviewed. Dictation was accomplished with the use of [employer] voice recognition software, prone to medical misidentifications and grammatical errors. This is unintentional and the practitioner does try to identify and correct these, but some could still be present. Please do not hesitate to contact practitioner for clarification. 05/02/2025 Intractable migraine with aura with status migrainosus (ICD-10 - G43.111) Eugenia is a 24-year-old female who presents the office for a Follow-up visit. # PHQ-9 completed January 29, 2025 with a total score of 3, no concern regarding mental health at this time. # Up-to-date on flu, and tetanus, declines COVID vaccination # Up-to-date on Pap smear November 2024, Dr. Lauren Stern # Labs reviewed, overall without concern # History of tremor, following with [facility] [facility], on propranolol 80 mg. Occasional lightheadedness which could be associated with side effect of bradycardia, heart rate Stable today. Discussed the importance of nutrition and hydration. She would like to continue with the medication. # Daytime sleepiness: Referred to sleep medicine,Had at home sleep study, overall did well 1 apneic episode. Doing an in-hospital sleep study. 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 This could also help with her daytime sleepiness. # Migraines: About 5 times per month. Mother has a history of them as well, treated with sumatriptan which patient tried. She is interested in a prescription for this which was sent. Discussed proper use, and side effects. Patient states that the migraine always is in her right congregational, and behind her right eye. With her history of migraines, and tremors, she is interested in MRI for which we will order without contrast. She is following with neurology, MRI was within normal limits and reassuring. does not feel she needs preventative treatment at this time, just abortive. Taking sumatriptan. 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 No further workup indicated at this time but can repeat echoes in the future for further monitoring. # Bilateral hand tremors, will order EMG, Negative. Patient still experiencing tremors, not better with alcohol. Follow-up with [facility], taking propranolol 80 mg # Patient concerns in regards to a lump in her right groin.Physical exam positive for a small, mobile, nontender lump in the right lower quadrant. Will order ultrasound. # Fatigue: Discussed multivitamin, B complex Follow-up in August, following with sleep medicine, neurology, ultrasound of the right lower quadrant All quetsions answered to patients satisfaction. Patient verbalized understanding of diagnosis and treatments explained. To call sooner prior to next visit it any questions/concerns arise. Case discussed with collaborating physician Tala Mack who reviewed the assessment and plan. Chart, medications, labs, vital signs reviewed. Dictation was accomplished with the use of [employer] voice recognition software, prone to medical misidentifications and grammatical errors. This is unintentional and the practitioner does try to identify and correct these, but some could still be present. Please do not hesitate to contact practitioner for clarification. 01/29/2025 Intractable migraine with aura with status migrainosus (ICD-10 - G43.111) Eugenia is a 24-year-old female who presents the office for a complete physical examination # PHQ-9 completed January 29, 2025 with a total score of 3, no concern regarding mental health at this time. # Up-to-date on flu, and tetanus, declines COVID vaccination # Up-to-date on Pap smear November 2024, Dr. Lauren Stern # Labs reviewed, overall without concern # History of tremor, following with [facility] [facility], on propranolol 80 mg. Occasional lightheadedness which could be associated with side effect of bradycardia, heart rate 54 today. States that it is worse when she does not eat, discussed the importance of nutrition. # Daytime sleepiness: Referred to sleep medicine, patient did not get at home sleep study, will recontact sleep medicine as they already ordered at home sleep study. # Taking control, Discussed risk factors associated with taking control with migraines. # Migraines: About 5 times per month. Mother has a history of them as well, treated with sumatriptan which patient tried. She is interested in a prescription for this which was sent. Discussed proper use, and side effects. Patient states that the migraine always is in her right congregational, and behind her right eye. With her history of migraines, and tremors, she is interested in MRI for which we will order without contrast. Also encouraged to follow with neurology. She is not interested in any abortive treatment at this time, just preventative for which we will start with sumatriptan. 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 No further workup indicated at this time but can repeat echoes in the future for further monitoring. # Bilateral hand tremors, will order EMG, Negative. Patient still experiencing tremors, not better with alcohol. Follow-up with [facility], taking propranolol 80 mg # Patient concerns in regards to a lump in her right groin. Based on physical exam most likely a benign lymph node. No further workup needed at this time, but did discuss criteria for further evaluation with an ultrasound. Less likely hernia at this time. Follow-up in 3 months, follow-up with sleep medicine, neurology, and obtain MRI of the brain in the meantime. Patient seen and examined. Comprehensive discussion was done on the following. 1. Nutrition: It is important to follow a healthy diet based on lots of vegetables and legumes and good fat. Avoid processed food and processed carbohydrates. Prepare your own meals. Read labels and avoid high fructose corn syrup, processed chemicals added to increase shelf life and preprepared meals. Avoid fast foods. Eat slowly and plan meals for a week. Try to count calories and be mindful off daily calorie intake. Get into the habit of keeping an eye on your weight by using an appropriate scale. Learn to log exercise and discussed fitness Apps like Shoptimise which can help keep log off calories taken versus calories burned. Local food should be preferred. Discussed Dirty Dozen Versus Clean Fifteen. Discussed healthy supplements like fish oil, Tumeric, Curcumin, Melatonin, Resveratrol, Probiotics, Vitamin-D, Alpha-Lipoic acid, Vitamin-D and coconut oil. 2. It is important to exercise regularly. Is a good habit to walk at least 30 minutes a day. Gentle weightlifting with standard precautions to protect the back. Finding activity like cycling or hiking and get into the habit of engaging in it. Stretching before and after the exercises important. It is also important to contact me if there are any problems like shortness of breath, chest pain, back pain and joint or muscle pain associated with the exercise. 3. Discussed age appropriate screening guidelines. Colonoscopy needs to start at age 50 with stool for occult blood as appropriate. There is a new test that can test for genetic abnormalities in the stool sample, Cologuard. This would not replace a colonoscopy but could be used as a screening tool for patients who do not want a colonoscopy. We discussed the importance of early detection of colon cancer. 4. Discussed current guidelines with respect to breast examination, mammogram and pap smear for early detection of breast and cervical cancer. Patient advised to follow up with these appointments. 5. Discussed safe driving and no use of smart phone while driving 6. Age-appropriate immunizations were discussed. A tetanus booster is needed every 10 years. Flu vaccine is recommended every year just before the start of the flu season. Shingles vaccine is recommended after age 50 but not all insurances cover it. Pneumonia vaccine is given after age 65 unless there are certain comorbidities for which it is started earlier. 7. Diagnostic labs were discussed. These could include/not limited to CBC CMP and lipids with fasting blood glucose and insulin levels. Vitamin D and hemoglobin A1c testing might be appropriate. All quetsions answered to patients satisfaction. Patient verbalized understanding of diagnosis and treatments explained. To call sooner prior to next visit it any questions/concerns arise. Case discussed with collaborating physician Tala Mack who reviewed the assessment and plan. Chart, medications, labs, vital signs reviewed. Dictation was accomplished with the use of [employer] voice recognition software, prone to medical misidentifications and grammatical errors. This is unintentional and the practitioner does try to identify and correct these, but some could still be present. Please do not hesitate to contact practitioner for clarification. 05/02/2025 Encounter for examination of blood pressure without abnormal findings (ICD-10 - Z01.30) Eugenia is a 24-year-old female who presents the office for a Follow-up visit. # PHQ-9 completed January 29, 2025 with a total score of 3, no concern regarding mental health at this time. # Up-to-date on flu, and tetanus, declines COVID vaccination # Up-to-date on Pap smear November 2024, Dr. Lauren Stern # Labs reviewed, overall without concern # History of tremor, following with [facility] [facility], on propranolol 80 mg. Occasional lightheadedness which could be associated with side effect of bradycardia, heart rate Stable today. Discussed the importance of nutrition and hydration. She would like to continue with the medication. # Daytime sleepiness: Referred to sleep medicine,Had at home sleep study, overall did well 1 apneic episode. Doing an in-hospital sleep study. 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 This could also help with her daytime sleepiness. # Migraines: About 5 times per month. Mother has a history of them as well, treated with sumatriptan which patient tried. She is interested in a prescription for this which was sent. Discussed proper use, and side effects. Patient states that the migraine always is in her right congregational, and behind her right eye. With her history of migraines, and tremors, she is interested in MRI for which we will order without contrast. She is following with neurology, MRI was within normal limits and reassuring. does not feel she needs preventative treatment at this time, just abortive. Taking sumatriptan. 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 No further workup indicated at this time but can repeat echoes in the future for further monitoring. # Bilateral hand tremors, will order EMG, Negative. Patient still experiencing tremors, not better with alcohol. Follow-up with [facility] [facility], taking propranolol 80 mg # Patient concerns in regards to a lump in her right groin.Physical exam positive for a small, mobile, nontender lump in the right lower quadrant. Will order ultrasound. # Fatigue: Discussed multivitamin, B complex Follow-up in August, following with sleep medicine, neurology, ultrasound of the right lower quadrant All quetsions answered to patients satisfaction. Patient verbalized understanding of diagnosis and treatments explained. To call sooner prior to next visit it any questions/concerns arise. Case discussed with collaborating physician Tala Mack who reviewed the assessment and plan. Chart, medications, labs, vital signs reviewed. Dictation was accomplished with the use of [employer] voice recognition software, prone to medical misidentifications and grammatical errors. This is unintentional and the practitioner does try to identify and correct these, but some could still be present. Please do not hesitate to contact practitioner for clarification. 01/29/2025 Encounter for examination of blood pressure without abnormal findings (ICD-10 - Z01.30) Eugenia is a 24-year-old female who presents the office for a complete physical examination # PHQ-9 completed January 29, 2025 with a total score of 3, no concern regarding mental health at this time. # Up-to-date on flu, and tetanus, declines COVID vaccination # Up-to-date on Pap smear November 2024, Dr. Lauren Stern # Labs reviewed, overall without concern # History of tremor, following with [facility] [facility], on propranolol 80 mg. Occasional lightheadedness which could be associated with side effect of bradycardia, heart rate 54 today. States that it is worse when she does not eat, discussed the importance of nutrition. # Daytime sleepiness: Referred to sleep medicine, patient did not get at home sleep study, will recontact sleep medicine as they already ordered at home sleep study. # Taking control, Discussed risk factors associated with taking control with migraines. # Migraines: About 5 times per month. Mother has a history of them as well, treated with sumatriptan which patient tried. She is interested in a prescription for this which was sent. Discussed proper use, and side effects. Patient states that the migraine always is in her right congregational, and behind her right eye. With her history of migraines, and tremors, she is interested in MRI for which we will order without contrast. Also encouraged to follow with neurology. She is not interested in any abortive treatment at this time, just preventative for which we will start with sumatriptan. 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 No further workup indicated at this time but can repeat echoes in the future for further monitoring. # Bilateral hand tremors, will order EMG, Negative. Patient still experiencing tremors, not better with alcohol. Follow-up with [facility], taking propranolol 80 mg # Patient concerns in regards to a lump in her right groin. Based on physical exam most likely a benign lymph node. No further workup needed at this time, but did discuss criteria for further evaluation with an ultrasound. Less likely hernia at this time. Follow-up in 3 months, follow-up with sleep medicine, neurology, and obtain MRI of the brain in the meantime. Patient seen and examined. Comprehensive discussion was done on the following. 1. Nutrition: It is important to follow a healthy diet based on lots of vegetables and legumes and good fat. Avoid processed food and processed carbohydrates. Prepare your own meals. Read labels and avoid high fructose corn syrup, processed chemicals added to increase shelf life and preprepared meals. Avoid fast foods. Eat slowly and plan meals for a week. Try to count calories and be mindful off daily calorie intake. Get into the habit of keeping an eye on your weight by using an appropriate scale. Learn to log exercise and discussed fitness Apps like [employer] which can help keep log off calories taken versus calories burned. Local food should be preferred. Discussed Dirty Dozen Versus Clean Fifteen. Discussed healthy supplements like fish oil, Tumeric, Curcumin, Melatonin, Resveratrol, Probiotics, Vitamin-D, Alpha-Lipoic acid, Vitamin-D and coconut oil. 2. It is important to exercise regularly. Is a good habit to walk at least 30 minutes a day. Gentle weightlifting with standard precautions to protect the back. Finding activity like cycling or hiking and get into the habit of engaging in it. Stretching before and after the exercises important. It is also important to contact me if there are any problems like shortness of breath, chest pain, back pain and joint or muscle pain associated with the exercise. 3. Discussed age appropriate screening guidelines. Colonoscopy needs to start at age 50 with stool for occult blood as appropriate. There is a new test that can test for genetic abnormalities in the stool sample, Cologuard. This would not replace a colonoscopy but could be used as a screening tool for patients who do not want a colonoscopy. We discussed the importance of early detection of colon cancer. 4. Discussed current guidelines with respect to breast examination, mammogram and pap smear for early detection of breast and cervical cancer. Patient advised to follow up with these appointments. 5. Discussed safe driving and no use of smart phone while driving 6. Age-appropriate immunizations were discussed. A tetanus booster is needed every 10 years. Flu vaccine is recommended every year just before the start of the flu season. Shingles vaccine is recommended after age 50 but not all insurances cover it. Pneumonia vaccine is given after age 65 unless there are certain comorbidities for which it is started earlier. 7. Diagnostic labs were discussed. These could include/not limited to CBC CMP and lipids with fasting blood glucose and insulin levels. Vitamin D and hemoglobin A1c testing might be appropriate. All quetsions answered to patients satisfaction. Patient verbalized understanding of diagnosis and treatments explained. To call sooner prior to next visit it any questions/concerns arise. Case discussed with collaborating physician Tala Mack who reviewed the assessment and plan. Chart, medications, labs, vital signs reviewed. Dictation was accomplished with the use of [employer] voice recognition software, prone to medical misidentifications and grammatical errors. This is unintentional and the practitioner does try to identify and correct these, but some could still be present. Please do not hesitate to contact practitioner for clarification. Plan Of Treatment Pending Test Test Name Order Date EMG/NCV ARMS 12/27/2023 MRI : Head 01/29/2025 US ABDOMINAL 05/02/2025 MMR (MEASLES, MUMPS, RUBELLA) IGG TITER 12/31/2022 TB CELLULAR BLOOD TEST (TSPOT) LIPID PANEL, STANDARD 04/30/2024 COMPREHENSIVE METABOLIC PANEL 04/30/2024 CBC (INCLUDES DIFF/PLT) 04/30/2024 URINALYSIS, COMPLETE 04/30/2024 HEMOGLOBIN A1c 04/30/2024 TSH 04/30/2024 VITAMIN D,25-OH,TOTAL,IA 04/30/2024 Next Appt Details Provider Name:DIMAS RODRIGUEZ, 09/02/2025 08:30:00 AM, [address], [place], [address], Insurance Providers Payer Name Payer Address Payer Phone Subscriber Number Group Number Insured Name Patient Relationship to Insured Coverage Start Date Coverage End Date [facility] [address] [place] [address] [phone] [id number] EUGENIA ESTRELLA Self - patient is the insured Medical (General) History Medical History History ICD Code Acne scarring L73.0 Tremor R25.1 Lightheaded R42 Daytime sleepiness R40.0 Murmur R01.1 Migraine headache G43.909 Surgical History Surgery Date(Month/Year) wisdom teeth Hospitalization History Reason Date(Month/Year) ER for abdominal pain March 2022
--- OUTSIDE RECORDS SUMMARY | 2025-07-10 08:27 | XMS_ITS ---
Author Name [facility] Organization Unknown Care Team Organization Name Specialty Phone Email Start Date End [facility] 07/06 [facility] 06/08/2024
--- NOTE | 2025-07-10 08:42 | A.OFFVIS_ITS ---
Intake Visit Reasons: 6m follow up Medication List - Last Reconciled 07/10/25 by Valery Brooks MD drospirenone-ethinyl estradiol 3-0.02 mg (Liset (28)) 1 tab PO DAILY propranolol ER (Inderal LA) 80 mg PO DAILY HPI Comments Details: Significant improvement in the tremor with Propranolol 40 mg a day, with almost no noticeable tremor. No side effects. Her tremors for started in late middle school. She has no family history of tremors. They interfere with her fine motor skills such as using a micropipette in school and in injecting and putting in IVs. She is left-handed. The tremor gets worse with the excess caffeine, hunger, or lack of sleep. She drinks about 2 cups of coffee a day. At this point it's interfering with her function, so she would prefer to have some form of treatm ent. She's had thyroid tests which were unremarkable. Also gets migraine 3/ month triggered by alcohol and lack of sleep. Using Sumatriptan 25mg PRN Sh egets no aura. If untreated , goes to nausea, photophobia and sonophobia Physical Exam Neuro Other: Neurological: Abnormal neurological findings:??No tremor noted today . Previously had ?low amplitude high frequency tremor on holding her hands up in an extended or flexed position an don finger to nose. No rest tremor.?.?Mental Status:??alert and oriented X 3,?Normal attention, orientation, memory and affect.?Cranial Nerves:??Pupils are equal, round and reactive to light. Fundoscopy shows normal disc bilaterally. External occular muscles are intact. Visual corea are full, no ptosis. Face is symmetrical, no facial weakness or droop. Facial sensations are normal. Tongue protrudes in midline. Palate elevates symmetrically. Shoulder shrugging is normal..?Motor Examination:??Normal muscle tone, bulk and strength,?No atrophy or fasciculations,?No drift of the extended upper extremities,?Deep tendon reflexes are 2+?,?Plantars are flexor?.?Motor Strength:?Proximal Muscles (out of 5):5Distal Muscles (out of 5):5Neck Flexors (out of 5):5Neck Extensors (out of 5):5Deltoid (out of 5):5Biceps (out of 5):5 Triceps (out of 5):5Serratus Anterior (out of 5):5Wrist Extensors (out of 5):5 APB (out of 5):5Finger Spread (out of 5):5Ileopsoas (out of 5):5Quadriceps (out of 5):5Hamstrings (out of 5):5Tibialis Anterior (out of 5):5Peronei (out of 5):5 EDB (out of 5):5Gastrocnemius (out of 5):5Straight Leg Raising:??90 degrees.?Sensory Exam:??Normal light touch, temperature, pinprick, vibration and joint-position sensations?,?Rhomberg sign is absent.?Coordination:??no ataxia,?no titubation,?dyohqz-fm-xgpy, xcgy-dpnu-ktud test and rapid alternating movements were normal.?Gait Exam:??Within normal limits.?Cerebellar Signs:??Lggdyg-dl-gnpm and fajs-tx-lokl is normal,?no dysdiadochokinesia?.?Extrapyramidal System:??Tremor as above, No?rigidity with normal facial expressions,?No bradykinesia, no bradyphrenia. Normal arm swing and posture. No propulsion or retropulsion.?Speech:??Normal,?no dysphasia or dysarthria..? Mini Mental Status Exam: Level of Consciousness:??Alert.?Orientation:??Knows correct year, month, date, day and season,?Knows correct city, county and state. Knows correct location and floor.?Registration:??Able to register 3 objects.?Attention:??Serial 7's performed accurately.?Recall:??Able to recall 3 out of 3 objects.?Language:??Normal spontaneous speech, fluency, repetition,naming, comprehension, reading and writing.?Total Score:??30/30.? Assessment & Plan Assessment & Plan (1) Benign essential tremor: Code(s): G25.0 - Essential tremor Category: Medical (2) Migraine: Code(s): G43.909 - Migraine, unspecified, not intractable, without status migrainosus Category: Medical Plan Continue current meds. Should use 50mg Sumatriptan instead of 25mg PRN for abortive therapy for migraine. Medications: New propranolol ER (Inderal LA) 80 mg PO DAILY 90 caps 3RF 90 days Coding Level of Care Code Est Pt Level 4 (16759) Diagnoses Benign essential tremor G25.0 Migraine G43.909
== END 2025-07-10 08:51 | disposition home or self-care (01) ==
LOC: HO.HSM 08:19
PROVIDERS: PCP Internal Medicine; Visit Provider Psychiatry & Neurology Neurology
DX: G25.0 Essential tremor (principal); G43.909 Migraine, unspecified, not intractable, without status migrainosus
CPT/HCPCS: 99214